=== PATIENT | female | born 1955 | race Caucasian/White ===

== ENCOUNTER 2024-03-31 13:06 | Outpatient (RCR) | payer OTHER, SELFPAY | END 2024-04-24 23:59 | disposition home or self-care (01) | LOC: SCTC 13:06 | PROVIDERS: PCP Nurse Practitioner Family; Referring Provider Nurse Practitioner Family; Visit Provider Internal Medicine Hematology & Oncology | DX: Z09 Encounter for follow-up examination after completed treatment for conditions other than malignant neoplasm (principal); Z86.2 Personal history of diseases of the blood and blood-forming organs and certain disorders involving the immune mechanism | CPT/HCPCS: 99212; G0463 ==

== ENCOUNTER 2024-07-01 08:00 | Day surgery (SDC) | payer OTHER, SELFPAY ==
--- NOTE | 2024-06-29 07:50 | EKG_ITS ---
[facility] Test Date: 2024-06-29 Pat Name: LYLE MERINO Department: Room: - Gender: Female Day Porter: KAMALA : 1955 Requested By: Kenneth Frank Order Number: [id number] Reading MD: Kenneth Frank Measurements Intervals Mobile Rate: 65 P: 8 WA: 145 QRS: -1 QRSD: 80 T: 3 QT: 398 QTc: 415 Interpretive Statements SINUS RHYTHM No previous ECG available for comparison /store/S0/[id number]/ecg/[id number]
[2024-06-29 09:39] VITALS: BMI 34.1
[2024-06-29 11:39] LABS: Alanine Aminotransferase 14 U/L (10-49); Albumin, Serum 4.2 gm/dL (3.4-4.8); Albumin/Globulin Ratio 1.8 (1.2-2.2); Alkaline Phosphatase 91 U/L (46-116); Anion Gap 8 (7-16); Aspartate Amino Transferase 19 U/L (0-34); BUN/Creatinine Ratio 18 Ratio (12-20); Bilirubin,Total 0.4 mg/dL (0.3-1.2); Blood Urea Nitrogen 23 mg/dL (9-23); Calcium 9.5 mg/dL (8.3-10.6); Calcium (Corrected) 9.5 mg/dL (8.5-10.1); Carbon Dioxide 26.9 mMol/L (20.0-31.0); Chloride 111 mMol/L (98-107); Creatinine (Component) 1.3 mg/dL (0.6-1.3); Estimated Creatinine Clearance 46.3 mL/min (>60); Globulin 2.4 gm/dL (2.3-3.5); Glucose 97 mg/dL (74-106); Osmolality,Calculated 294 (275-295); Potassium 4.2 mMol/L (3.4-5.1); Sodium 146 mMol/L (136-145); Total Protein 6.6 gm/dL (5.7-8.2); eGFR 45 See Note
--- NOTE | 2024-06-30 13:27 | SUR.PREOP ---
Health history reviewed with Dr Saxena.
[2024-07-01] VITALS (11 sets, daily range): BP systolic 83–138; BP diastolic 55–72; PULSE 68–89; RESP 12–20; TEMP 36.1–36.8; O2SAT 95–100; BMI 34.0
[2024-07-01] MEDS: RINGERS LACTATED 1000 ML 1,000 ML 20 ML IV (08:52)
--- NOTE | 2024-07-01 11:37 | SUR.PHASEI ---
1137: Pt. AAOx4, vitals stable, breathing unlabored, no complaint of pain or nausea, no dressing in place, no active bleed noted, report received from MD Mcintyre and James PULLIAM.
--- NOTE | 2024-07-01 11:37 | PD.SUROPNT ---
Date of Procedure 07/01/24 Pre Op Diagnosis Immobile left vocal cord with hoarseness Post Op Diagnosis Immobile left vocal cord with hoarseness Procedure Suspension laryngoscopy with left vocal cord medialization using proLaryn plus injection 0.8 cc injected Findings Immobile left true vocal cord in the paramedian position Procedure Description 68-year-old female with immobile left true vocal cord and secondary hoarseness. Treatment options were discussed the patient wished to proceed with vocal cord medialization as described above. Risk of bleeding infection and shortness of breath were discussed with her. She also understands this is not a permanent procedure. Patient was marked in the preoperative setting then transferred to the operative suite where she was anesthetized by mask and sedated. This small Dedo laryngoscope was placed after timeout. Tooth guard was placed on the upper teeth. The scope was inserted. Attempted initially suspended but it made the view more difficult so I held the laryngoscope freehand. The pro Verna injection needle was then inserted lateral to the muscularis process on the left vocal cord. Approximately 0.6 cc of proLaryn plus were injected there. The needle was removed closer to the junction of the middle third of the vocal cord then 0.2 more cc were injected. The vocal cords had good approximation. Patient was awakened after removing the laryngoscope and the tooth guard and tolerated the procedure well. Anesthesia IV sedation Pathology / specimen None Estimated Blood Loss 0 Surgeon Kenneth Durham DO Surgical Staff Operation Date: 07/01/24 10:45 Case Staff Anesthesiologist: Goldy Mcintyre
[2024-07-01] MEDS: MORPHINE SULF INJ 10 MG/ML VIAL 3 MG IV (11:46)
[2024-07-01] MEDS: fentaNYL CIT INJ 50 mCg/ML AMP 2ML 25 MCG IV (12:06)
--- NOTE | 2024-07-01 12:21 | SUR.PHASEII ---
1221: Received report from Shirlene Thomas RN. Pt. AAOx4, vitals stable, breathing unlabored, no complaint of pain or nausea.
--- NOTE | 2024-07-01 12:21 | SUR.PHASEII ---
Report to Waleska PULLIAM
[2024-07-01] MEDS: ONDANSETRON INJ 2 MG/ML INJ 2 ML 4 MG IV (12:54)
--- NOTE | 2024-07-01 13:20 | SUR.PHASEII ---
1320: Pt. AAOx4, vitals stable, breathing unlabored, no complaint of pain or nausea, no dressing in place, no active bleed noted, pt. tolerated sips of water well, pt. ambulated to wheelchair with steady gait and no assist, no complications. Gave discharge instructions to the pt. and her ride, both verbalized understanding and had no further questions. Pt. left with all personal belongings.
== END 2024-07-01 13:20 | disposition home or self-care (01) ==
PROVIDERS: PCP Internal Medicine Pulmonary Disease; Referring Provider Otolaryngology; Visit Provider Otolaryngology
PROC: 0CJS8ZZ Inspection of Larynx, Via Natural or Artificial Opening Endoscopic (ICD-10-PCS; CPT 31571; principal; 2024-07-01 10:30)
DX: J38.01 Paralysis of vocal cords and larynx, unilateral (principal); R49.8 Other voice and resonance disorders
CPT/HCPCS: 31571; 36415; 80053; 93005; A4217; A4649; C1878; J0171; J2250; J2270; J2405; J2704; J3010; J7120

== ENCOUNTER 2024-09-28 12:56 | Outpatient (RCR) | payer MEDICARE, SELFPAY ==
--- NOTE | 2024-09-29 12:55 | CTCFLWUP_ITS ---
Patient: SELENE MERINO : 1955 Page 2 of 2 FOLLOW UP NOTE DATE OF SERVICE: 09/28/2024 NAME: SELENE MERINO ACCOUNT: [id number] : 1955 AGE: 69 INTERVAL HISTORY: Stephen Morton, a 69-year-old female with suspected lupus, presented for follow- up of leukopenia, femur fracture pain, and lymphedema. Her WBC count normalized at 6.7 following a seizure on September 05. She uses a wheelchair due to a femur fracture treated with metal screws. She has a 20-year smoking history and low kidney function possibly related to lupus. Assessment included resolved leukopenia, suspected lupus, femur fracture, and lymphedema. Plan includes Zometa infusions every 6 months to strengthen bones, bone density testing, and follow-up in 6 months. Chief Complaint Follow-up for leukopenia, pain from femur fracture, lymphedema History of Present Illness Stephen Morton, a 69-year-old female with a history of smoking and suspected lupus, presents for follow-up of leukopenia and recent seizure. The patient's white cell count has recovered since her last visit, now normal at 6.7. She experienced a seizure on September 05, which led to blood work being done at [facility]. The patient is currently in a wheelchair due to a femur fracture from a fall, which was treated with metal screws. She continues to experience pain from this injury. Additionally, the patient reports a history of lymphedema since having children. No cancer has been detected. The patient's kidney function is noted to be low, which may be related to the suspected lupus diagnosis. She has not reported any specific symptoms related to these conditions during this visit. Medical History - Leukopenia, resolved - Seizure on September 05 - Femur fracture from a fall, treated with metal screws - Lymphedema since having children Surgical History - Femur fracture repair with metal screws, following a fall Medications and Supplements - Zometa - Infusion recommended instead of oral medication. - To be administered every 6 months. - Intended to strengthen bones. Social History - Substance Use: Former smoker (20 years, started at age 20, quit at age 42) - Mobility: Uses wheelchair due to femur fracture from fall Review of Systems Musculoskeletal: Positive for pain in femur area. Neurological: Positive for history of seizure. Physical Examination Musculoskeletal: Patient is in a wheelchair due to a femur fracture. Laboratory, Imaging, and Diagnostic Test Results - Date: September 05, 2024 - CBC: WBC 6.7 (normal) - RBC: Normal (value not specified) - Hemoglobin: 15.7 (slightly high, but not concerning) ONCOLOGY HISTORY: DIAGNOSIS: Other decreased white blood cell countLeukopenia, resolved. Gastric bypass (2009) REASON FOR TODAY?S VISIT: Patient is 69-year-old woman who is previous smoker and at last visit was noted to have normal white cell count. Patient was noted to have hoarseness of her voice and was referred to ENT by [employer] catrachito. Today patient do not have any hoarseness. Other osteoporosis with current pathological fracture, right femur, initial encounter for fracture [ICD10] M80.851A TREATMENT HISTORY: Care?Plan Start?Date Cycle Day Intent Zoledronic?Acid?4?mg 09/28/2024 1 90 Palliative HISTORY OF PRESENT ILLNESS: PREVIOUS NOTES: Selene Dunlap is a 69-year-old Northern Irish-speaking female. Patient was referred due to leukopenia. Patient reports history of gastric bypass in 2009. Reports history of anemia requiring iron infusions in 2022 at the [facility]. Patient reports she had a colonoscopy and endoscopy in 2019, was told it was normal. History of CKD follows up with nephrology, history of AVM follows up with neurologist. Patient also follows up with vascular, Dr. Blunt, for lymphedema. History of chronic right knee pain and right hip pain, uses wheelchair for mobility. 05/30/2023: WBC 2.68, hemoglobin 14.0, MCV 99.8, ANC 2.16, platelets 196,000, creatinine 1.11 05/30/2023: Chest x-ray 11/19/2023: WBC 5.2, hemoglobin 13.6, MCV 96.8, platelets 223,000, iron saturation 29%, ferritin 50, B12 is 340, folate is 10.9. 12/05/2023: WBC 4.0, hemoglobin 14.0, MCV 98, ANC, platelets 204,000, creatinine 1.09, EGFR 56, no iron saturation and ferritin collected 01/02/2024: WBC 5.3, hemoglobin 14.5, MCV 100, ANC 3.2, platelets 233,000, creatinine 1.05, EGFR 59, iron saturation 26%, ferritin 900, B12 is 476, folate is 14.4. 01/13/2024: CT chest with contrast 01/28/2024: WBC 5.0, hemoglobin 14.4, MCV 100, ANC 3.0, platelets 231,000 02/19/2024: WBC 5.6, hemoglobin 14.1, MCV 98, ANC 3.3, platelets 219,000 OTHER MEDICAL HISTORY/CONDITIONS: Chronic pain BLE lymphedema Depression AVM Hyperlipidemia GERD Osteoarthitis Migraines Hx Scabies Surgerical repair fractured left femur Gastric bypass surgery - 2009 Cholecystectomy - 2008 Appendectomy - 2007 Umbulical hernia repair - 2006 DEMETRIUS and left oophorectomy - 1981 Tonsillectomy - age 7 FAMILY HISTORY: Colon-dx age 60s, prostate ? 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 atorvastatin - 10 mg 1 tab Daily 2. baclofen - 10 mg 1 tab Twice a Day 3. divalproex - 500 mg 1 tab Twice a Day 4. fluoxetine - 40 mg 1 Capsule Daily 5. Lasix - 20 mg 1 tab Daily 6. loratadine - 10 mg 1 tab Daily 7. metoprolol succinate - 50 mg 1 tab Daily 8. [place] - 7.5-325 mg 1 tab As directed 9. omeprazole - 20 mg 1 Capsule Daily 10. topiramate - 50 mg 1 Capsule Daily 11. TylenoL - 650 mg 2 tab As directed 12. Ubrelvy - 100 mg 1 tab Daily Medications Last Reconciled by Marcela Franklin MA on 09/28/2024 ALLERGIES: No Known Drug Allergies REVIEW OF SYSTEMS: A complete 14-point review of systems was performed and is negative except as noted in interval history. PHYSICAL EXAMINATION: VITAL SIGNS: Temperature?98, B/P?103/70, Oxygen?Saturation?98% PAIN: 7 - Between severe and very severe pain ECOG Performance Status: 0 - Asymptomatic and fully active GENERAL APPEARANCE: Appears well, in no apparent distress, appropriately interactive. HEENT: Normocephalic, no temporal wasting, normal conjunctiva, no scleral icterus, normal hearing, lips without lesions, neck normal range of motion. CARDIOVASCULAR: Not assessed. PULMONARY: Normal respiratory effort, no respiratory distress or use of accessory muscles, speaking in full sentences, no tachypnea. EXTREMITIES: No pedal edema or cyanosis. SKIN: Normal skin appearance. NEUROLOGIC: Alert and oriented x4. PSHYCHIATRIC: Appropriate affect, mood normal, behavior normal, intact thought and speech. LABORATORY DATA: I have personally reviewed and interpreted each of the patient?s relevant lab tests, abnormal findings are below: Date 06/29/24 ??GLUCOSE,RANDOM?(mg/dL) 97 ??BLOOD?UREA?NITROGEN?(mg/dL) 23 ??CREATININE?(mg/dL) 1.30 ??SODIUM?(mmol/L) 146?H ??POTASSIUM?(mmol/L) 4.2 ??CHLORIDE?(mmol/L) 111?H ??CrCl?(CandG)?(ml/min) 45.18 ??AST/SGOT?(Unit/L) 19 ??ALT/SGPT?(Unit/L) 14 ??ALKALINE?PHOSPHATASE?(Unit/L) 91 ??BILIRUBIN,?TOTAL?(mg/dL) 0.4 ??PROTEIN?TOTAL?(gm/dl) 6.6 ??ALBUMIN,?SERUM?(gm/dl) 4.2 ??GLOBULIN?(gm/dl) 2.4 ??ALBUMIN/GLOBULIN?RATIO 1.8 ??CALCIUM,?SERUM?(mg/dL) 9.5 ??CALCIUM?SERUM?(CORRECTED)?(mg/dL) 9.5 ASSESSMENT/PLAN: Stephen Morton, a 69-year-old female with a history of smoking and recent seizure, presents for follow-up of leukopenia and suspected lupus, currently using a wheelchair due to a femur fracture. Leukopenia Assessment: Patient was previously seen for leukopenia. Recent blood work performed at [facility] on September 05 following a seizure episode shows that the white cell count has recovered and is now within normal range at 6.7. Red cell count is also normal, with hemoglobin slightly elevated at 15.7, which is not considered concerning. Plan: - No immediate intervention required for leukopenia as white cell count has normalized - Follow up in 6 months Suspected Lupus Assessment: Lupus is suspected based on the patient's presentation and laboratory findings. Notably, kidney function is reported as low, which could be consistent with lupus nephritis. Further evaluation and testing may be necessary to confirm the diagnosis and assess organ involvement. Plan: - Further diagnostic workup to confirm lupus diagnosis (specific tests not mentioned in transcript) - Monitor kidney function - Follow up in 6 months Femur Fracture Assessment: Patient sustained a femur fracture from a fall, which was treated with metal screws. Currently, the patient is using a wheelchair and continues to experience pain. Given the patient's age and fracture history, there is concern for potential osteoporosis or decreased bone density. Plan: - Order bone density test to assess bone health - Initiate Zometa treatment to strengthen bones - Administer via infusion (preferred over oral medication) - Frequency: Every 6 months - Insurance approval confirmed - Reassess pain management (specific interventions not mentioned in transcript) - Follow up in 6 months Lymphedema Assessment: Patient reports a history of lymphedema since having children. No specific details provided about current symptoms or previous treatments. Plan: - Continue monitoring lymphedema (specific interventions not mentioned in transcript) - Follow up in 6 months History of Smoking Assessment: Patient has a 20-year smoking history, starting at age 20 and quitting at age 42. Current smoking status not explicitly stated, but presumed to be a former smoker based on the provided information. Plan: - Continue to encourage smoking cessation maintenance - Follow up in 6 months Cancer Screening Assessment: No cancer detected during this evaluation. Plan: - Continue routine cancer screening as appropriate for age and risk factors - Follow up in 6 months ORDERS: Order # Description [id number] Basic Metabolic Panel [id number] Lab Appointment [id number] Infusion 1 Hour [id number] Follow Up 6 Month RETURN TO CLINIC: 6 months BILLING AND COMPLIANCE: I reviewed external records from providers outside my specialty as summarized above. I spent a total of 50 minutes on this patient?s care on the day of their visit excluding time spent related to any billed procedures. This time includes time spent with the patient as well as time spent documenting in the medical record, reviewing patients records and tests, obtaining history, placing orders, communicating with other healthcare professionals, counseling the patient, family or caregiver, and/or care coordination for the diagnoses above. Electronically Signed by: Sherman Venegas MD T: 12:53 PM CC: PCP: Referring: Amaila Ang This document was completed utilizing speech recognition software. Grammatical errors, random word insertions, pronoun errors, and incomplete sentences are an occasional consequence of this system due to software limitations, ambient noise, and hardware issues. Any formal questions or concerns about the content, text or information contained within the body of this dictation should be directly addressed to the provider for clarification.
== END 2024-10-23 23:59 | disposition home or self-care (01) ==
LOC: SCTC 12:56
PROVIDERS: PCP Nurse Practitioner Family; Referring Provider Nurse Practitioner Family; Visit Provider Internal Medicine Hematology & Oncology
DX: D72.819 Decreased white blood cell count, unspecified (principal); S72.92XD Unspecified fracture of left femur, subsequent encounter for closed fracture with routine healing; W19.XXXD Unspecified fall, subsequent encounter; I89.0 Lymphedema, not elsewhere classified; Z87.891 Personal history of nicotine dependence
CPT/HCPCS: 99212; G0463

== ENCOUNTER → 2024-10-15 | Outpatient (CLI) | payer MEDICARE, SELFPAY ==
--- NOTE | 2024-10-15 13:40 | XR_ITS ---
Examination: Bone densitometry Date and time of exam:October 15, 2024 1356 hours INDICATIONS: Hysterectomy age 24, post hysterectomy fracture right leg, history left hip replacement Technique: Lumbar spine and forearm total bone mineralization values of an calculated. Peak reference and age match control results have been displayed. Findings: Lumbar spine total bone mineralization is0.634 gm/cm2. This is 3.8 standard deviations below peak reference. This is 1.8 standard deviations below age-matched controls. Forearm total bone mineralization is 0.427 gm/cm2 This is 2.7 standard deviations below peak reference. This is 0.8 standard deviations below age-matched controls Impression: There is osteoporosis based on lumbar spine measurements. There is osteoporosis based on forearm measurements
== END | disposition home or self-care (01) ==
LOC: CDIM 13:28
PROVIDERS: Referring Provider Internal Medicine Hematology & Oncology; Visit Provider Internal Medicine Hematology & Oncology
DX: M81.0 Age-related osteoporosis without current pathological fracture (principal)
CPT/HCPCS: 77080